=== PATIENT | female | born 1960 | race Caucasian/White ===

== ENCOUNTER 2020-11-24 15:19 | Emergency (ER) | payer OTHER ==
[~2020-11-24] VITALS: Ht 165.1 cm; Wt 111.1 kg
[~2020-11-24 15:19] MED LIST: KEFLEX250 MG PO; NOHOMEMEDICATIONS; PERCOCET 5-3251 EACH PO
[2020-11-24] MEDS ORDERED: KEFLEX500 M1 PO (16:24)
[2020-11-24 16:36] VITALS: BP 149/76
== END 2020-11-24 16:37 | disposition home or self-care (01) ==
LOC: M.ERS 15:19
DX: S61.313A Laceration without foreign body of left middle finger with damage to nail, initial encounter (principal); W26.8XXA Contact with other sharp object(s), not elsewhere classified, initial encounter; Y93.89 Activity, other specified; Y92.89 Other specified places as the place of occurrence of the external cause; Y99.8 Other external cause status